=== PATIENT | female | born 1965 | race Caucasian/White ===

== ENCOUNTER 2023-09-08 09:21 | Emergency (ER) | payer BC, OTHER ==
[2023-09-08] MEDS ORDERED: Famotidine 20 MG TAB ONE (09:51)
[2023-09-08 09:57] LABS: #Eosinphils 0.1 thou/uL (0.0-0.7); #Lymphocytes 1.3 thou/uL (1.20-3.40); #Monocytes 0.3 thou/uL (0.11-0.59); #Neutrophils 3.1 thou/uL (1.40-6.50); %Basophils 0.8 % (0.0-1.0); %Eosinophils 2.1 % (0.0-10.0); %Lymphocytes 27.1 % (21.0-51.0); %Monocytes 5.5 % (0.0-10.0); %Neutrophils 64.5 % (42.0-75.0); Hematocrit 43.1 % (36.0-47.0); Hemoglobin 13.9 g/dL (12.0-16.0); Mean Corpuscular HGB CONC 32.3 g/dL (32.0-36.0); Mean Corpuscular Hemoglobin 30.7 pg (27.0-31.0); Mean Platelet Volume 9.9 fL (7.4-10.4); Platelet Count 253 10x3/uL (130-400); RBC Distribution Width 12.9 % (11.5-14.5); Red Blood Cell (RBC) Count 4.54 mill/uL (4.20-5.40); White Blood Cell (WBC) Count 4.9 10x3/uL (4.8-10.8)
[2023-09-08] MEDS ORDERED: Rabies Vaccine Human 2.5 UNITS VIAL ONE (09:57)
[2023-09-08] MEDS ORDERED: Rabies Immune Globulin/PF 300 UNITS/ML VIAL ONE (09:58)
[2023-09-08 10:11] LABS: ALT (SGPT) 18 U/L (8-55); AST (SGOT) 14 U/L (5-34); Albumin 4.1 g/dL (3.5-5.0); Alkaline Phosphatase 66 U/L (40-110); Anion Gap 13 mmol/L (10-20); BUN (Urea Nitrogen) 13 mg/dL (9.8-20.1); Bilirubin, Total 0.7 mg/dL (0.2-1.2); Calc. Creatinine Clearance 0 mL/min (70-130); Calcium 8.7 mg/dL (7.8-10.44); Carbon Dioxide 23 mmol/L (22-29); Chloride 108 mmol/L (98-107); Estimated GFR 87; Globulin 2.6 g/dL (2.4-3.5); Glucose 120 mg/dL (70-105); Magnesium 1.9 mg/dL (1.6-2.6); Potassium 3.8 mmol/L (3.5-5.1); Protein, Total 6.7 g/dL (6.0-8.3); Sodium 140 mmol/L (136-145)
== END 2023-09-08 10:41 | disposition home or self-care (01) ==
LOC: MADERS 09:21
DX: Z23 Encounter for immunization (principal); S61.251D Open bite of left index finger without damage to nail, subsequent encounter; S61.051D Open bite of right thumb without damage to nail, subsequent encounter; K21.9 Gastro-esophageal reflux disease without esophagitis; E03.9 Hypothyroidism, unspecified; E78.5 Hyperlipidemia, unspecified; Z79.899 Other long term (current) drug therapy; W55.01XD Bitten by cat, subsequent encounter
CPT/HCPCS: 36415; 80053; 83735; 85025; 90375; 90471; 90675; 96372